=== PATIENT | female | born 1950 | race American Indian/Alaskan Native ===

== ENCOUNTER 2021-12-15 11:05 | Emergency (ER) | payer MEDICARE ==
[2021-12-15] MEDS ORDERED: ACETAMINOPHEN W/CODEINE 300-30 MG TAB PO NR (13:00)
--- NOTE | 2021-12-15 13:22 | XRay Report ---
RIGHT ANKLE 3 VIEWS INDICATION / CLINICAL INFORMATION: Fall with right ankle pain. COMPARISON: None available. FINDINGS: BONES / JOINT(S): The joint spaces are well-maintained. No significant arthritis. There is an acute, minimally displaced fracture involving the base of the fifth metatarsal. I do not identify an acute f racture or dislocation involving the ankle. SOFT TISSUES: There is mild generalized soft tissue swelling. ADDITIONAL FINDINGS: Small vessel vascular calcifications are present suggestive of diabetes. IMPRESSION: Acute, minimally displaced fracture involving the base of the fifth metatarsal. Signer Name: Adam Winter MD Signed: 12/15/2021 1:17 PM Workstation Name: [id number]
--- NOTE | 2021-12-15 13:24 | XRay Report ---
RIGHT FOOT 3 VIEWS INDICATION / CLINICAL INFORMATION: Fall with right foot pain. COMPARISON: None available. FINDINGS: BONES / JOINT(S): There is an acute, minimally displaced fracture involving the base of the fifth met atarsal at the level of the tuberosity. No dislocation. No significant arthritis. SOFT TISSUES: Mild generalized soft tissue swelling. ADDITIONAL FINDINGS: Small vessel vascular calcifications are suggestive of diabetes. IMPRESSION: Acute fracture involving the base of the right fifth metatarsal. Signer Name: Adam Winter MD Signed: 12/15/2021 1:19 PM Workstation Name: [id number]
--- NOTE | 2021-12-15 14:47 | Emergency Department Report ---
ED Lower Extremity HPI - General Stated Complaint: RT FOOT PAIN Time Seen by Provider: 12/15/21 12:21 Source: patient Mode of arrival: Ambulatory Limitations: No Limitations - History of Present Illness Initial Comments: 71 yof with pmh of HTN, DM, CHF, and renal disease presents to ed for evaluation of right foot and ankle pain after falling on Tuesday. She states that she ellyn ed while walking around her home and denies LOC. She states that she attempted to use ice and heat but without improvement. She states that foot and ankle are now with increased pain and swelling. MD Complaint: ankle injury, foot injury -: Sudden, days(s) (2) Injury: Ankle: Right, Foot: Right Type of Injury: other (fell) Place: home Severity: moderate Severity scale (0 -10): 6 Context: fall Associated Symptoms: swelling, able to partially bear weight Treatments Prior to Arrival: cold therapy - Related Data Previous Rx's Medication Instructions Recorded Last Taken Type Acetaminophen/Codeine [Tylenol 1 tab PO Q6H PRN #21 tab 12/15/21 Unknown Rx /Codeine # 3 tab] Allergies Allergy/AdvReac Type Severity Reaction Status Date / Time No Known Allergies Allergy Unverified 12/15/21 12:31 ED Review of Systems ROS: Stated complaint: RT FOOT PAIN Other details as noted in HPI Comment: All other systems reviewed and negative Constitutional: no symptoms reported Respiratory: no symptoms reported. denies: shortness of breath, SOB with exertion, SOB at rest Cardiovascular: denies: as per HPI, dyspnea on exertion Endocrine: no symptoms reported Gastrointestinal: denies: abdominal pain, nausea, vomiting Musculoskeletal: denies: back pain ED Past Medical Hx - Past Medical History Hx Hypertension: Yes Hx Congestive Heart Failure: Yes Hx Diabetes: Yes - Medications Home Medications: Home Medications Medication Instructions Recorded Confirmed Last Taken Type Acetaminophen/Codeine [Tylenol 1 tab PO Q6H PRN #21 tab 12/15/21 Unknown Rx /Codeine # 3 tab] ED Physical Exam - General General appearance: alert, in no apparent distress - Head Head exam: Present: atraumatic, normocephalic - Eye Eye exam: Absent: normal appearance, conjunctival injection - Neck Neck exam: Absent: normal inspection - Respiratory Respiratory exam: Present: normal lung sounds bilaterally. Absent: respiratory distress, chest wall tenderness - Cardiovascular Cardiovascular Exam: Present: regular rate - GI/Abdominal GI/Abdominal exam: Absent: distended, tenderness - Extremities Exam Extremities exam: Absent: calf tenderness - Expanded Lower Extremity Exam Right Upper Leg exam: Present: normal inspection Knee exam: Present: normal inspection, full ROM. Absent: tenderness, swelling Lower Leg exam: Absent: tenderness, swelling Ankle exam: Present: tenderness, swelling. Absent: full ROM, deformity Foot/Toe exam: Present: tenderness, swelling, tenderness at base of 5th metatarsal. Absent: full ROM, deformity, calcaneal tenderness Neuro vascular tendon exam: Present: no vascular compromise. Absent: pulse deficit, abnormal cap refill, sensory deficit, extremity cold to touch - Back Exam Back exam: Present: normal inspection - Neurological Exam Neurological exam: Present: alert, oriented X3 - Psychiatric Psychiatric exam: Present: normal affect, normal mood - Skin Skin exam: Present: warm, dry, intact ED Course Vital Signs 12/15/21 16:34 Temperature 99.1 F Pulse Rate 74 Respiratory 16 Rate Blood Pressure 145/73 [Right] O2 Sat by Pulse 100 Oximetry - Orthopedic Fracture Reduction Fracture #1 Side: right Fracture Reduction Location: metatarsal Analgesia: none Technique: other (posteroir splint from toes to upper calf with medial lateral U splint included as well per advise of Dr. Jackson) Splint Applied: Yes Patient Tolerated Procedure: well, no complications ED Lower Extremity MDM - Radiology Data Radiology results: report reviewed, image reviewed Acute fracture of base of the right fifth metatarsal bone. - Medical Decision Making 71 yof with pmh of HTN, DM, CHF, and renal disease presents to ed for evaluation of right foot and ankle pain after falling on Tuesday. She states that she tripped while walking around her home and denies LOC. She states that she attempted to use ice and heat but without improvement. She states that foot and ankle are now with increased pain and swelling. Patient was noted to have acute fracture of base of right metatarsal bone. Patient was placed in short leg splint and instructed on non weight bearing. She was advised to follow up with orthopedic surgery in the next week for further evaluation. She verbalized understanding. Critical care attestation.: If time is entered above; I have spent that time in minutes in the direct care of this critically ill patient, excluding procedure time. ED Disposition Clinical Impression: Fracture of fifth metatarsal bone Disposition: 01 HOME / SELF CARE / HOMELESS Is pt being admited?: No Does the pt Need Aspirin: No Condition: Stable Instructions: Cast or Splint Care, Adult, [id number], Metatarsal Fracture Additional Instructions: Take medications as prescribed. Follow up with orthopedics later this week for further evaluation. Prescriptions: Acetaminophen/Codeine [Tylenol /Codeine # 3 tab] 1 tab PO Q6H PRN #21 tab PRN Reason: Pain , Severe (7-10) Referrals: GRAEME JACKSON MD [Staff Physician] - 3-5 Days Time of Disposition: 14:52
[2021-12-15 16:39] VITALS: BP 145/73
== END 2021-12-15 16:39 | disposition home or self-care (01) ==
LOC: ED 11:05
DX: S92.351A Displaced fracture of fifth metatarsal bone, right foot, initial encounter for closed fracture (principal); I10 Essential (primary) hypertension; E11.8 Type 2 diabetes mellitus with unspecified complications; W19.XXXA Unspecified fall, initial encounter; Y93.89 Activity, other specified; Y92.89 Other specified places as the place of occurrence of the external cause; Y99.8 Other external cause status
CPT/HCPCS: 82962; 99283